=== PATIENT | male | born 1965 | race Caucasian/White ===

== ENCOUNTER 2025-03-30 20:02 | Emergency (ER) | payer OTHER ==
[2025-03-30] MEDS: Sodium Chloride 0.9% 10 ML Syringe FLUSH PRN (20:05)
[2025-03-30] MEDS: EPINEPHrine 1 MG/ML SDV IM ONE (20:05)
[2025-03-30] MEDS: diphenhydrAMINE 50 MG/ML SDV IVPUSH ONE (20:06)
[2025-03-30] MEDS: methylPREDNISolone Sodium Succinate 125 MG/2 ML SDV IV ONE (20:13)
== END 2025-03-30 23:14 | disposition home or self-care (01) ==
LOC: JP.ED 20:02
DX: T63.91XA Toxic effect of contact with unspecified venomous animal, accidental (unintentional), initial encounter (principal); T78.2XXA Anaphylactic shock, unspecified, initial encounter; Z88.8 Allergy status to other drugs, medicaments and biological substances; Z79.899 Other long term (current) drug therapy
CPT/HCPCS: 96372; 96374; 96375; 99283; J0169; J1200; J2919; J7030; J7620; A9270-GY